=== PATIENT | female | born 1985 | race Caucasian/White ===

== ENCOUNTER 2016-10-07 18:19 | Emergency (ER) | payer OTHER ==
[~2016-10-07] VITALS: Ht 162.6 cm; Wt 71.5 kg
[~2016-10-07 18:19] MED LIST: CALC1TAB98 PO; FER325 PO; IBUP-1542 PO; PREN1TAB74 PO
[2016-10-07 18:28] VITALS: Ht 162.6 cm; Wt 71.5 kg
[2016-10-07] MEDS ORDERED: ACET500C5 PO (18:37)
[2016-10-07] MEDS ORDERED: CETI10CA PO (18:37)
[2016-10-07] MEDS ORDERED: ALBU8.5H3 INH (18:37)
--- NOTE | 2016-10-07 19:09 | ERD ---
ER Documentation Chief Complaint Date/Time DATE: 10/07/16 TIME: 19:07 Chief Complaint cough x 3 days HPI 31-year-old female presents to emergency department for complaints of cough, on and off wheezing for the last 3 days. Patient denies any fever or chills. Patient has been having dry cough, does not cough up any phlegm or blood. Patient's brother is sick with the same symptoms. Patient is approximately 20 weeks , denies any abdominal pain, flank pain, vaginal bleeding or any related symptoms. ROS All systems reviewed and are negative except as per history of present illness. Medications Home Meds Active Scripts Acetaminophen* (Tylophen*) 500 Mg Capsule, 1 CAP PO Q6H Y for PAIN AND OR ELEVATED TEMP, #20 CAP Prov:MYA SOARES NP 10/07/16 Cetirizine Hcl* (Zyrtec*) 10 Mg Capsule, 10 MG PO DAILY, #30 TAB.CHEW Prov:MYA SOARES NP 10/07/16 Albuterol Sulfate* (Proair HFA*) 8.5 Gm Hfa.aer.ad, 2 PUFF INH Q4H Y for WHEEZING AND SOB, #1 INHALER Prov:MYA SOARES NP 10/07/16 Ibuprofen* (Ibuprofen*) 600 Mg Tablet, 600 MG PO Q6, #20 TAB 0 Refills Prov:YADIEL BAUTISTA MD 11/06/15 Reported Medications Ferrous Sulfate* (Ferrous Sulfate*) 325 Mg Tabec, 325 MG PO DAILY, TAB 09/19/15 Vit-Iron Fumarate-FA ( Vitamin Formula) 1 Tab Tablet, 1 TAB PO DAILY, TAB 09/19/15 Calcium Carbonate-Vitamin D3 (Calcium + D 600 Tablet) 1 Tab Tablet, 1 TAB PO DAILY, TAB 09/19/15 Allergies Allergies: Coded Allergies: No Known Allergy (Verified , 11/05/15) PMhx/Soc History of Surgery: Yes (cholecystectomy) Anesthesia Reaction: No Hx Neurological Disorder: No Hx Respiratory Disorders: No Hx Cardiac Disorders: No Hx Psychiatric Problems: No Hx Miscellaneous Medical Probl: No Hx Alcohol Use: No Hx Substance Use: No Hx Tobacco Use: No FmHx Family History: No coronary disease, No diabetes, No other Physical Exam Vitals Vital Signs Date Time Temp Pulse Resp B/P Pulse Ox O2 Delivery O2 Flow Rate FiO2 10/07/16 18:28 99.2 97 20 120/61 98 Physical Exam GENERAL: The patient is well developed and appropriate for usual state of health, in no apparent distress. HEENT: Atraumatic. Ears: Normal tympanic membrane, no erythema or bulging. No ear canal swelling. No ear discharge. Nose: Erythematous nasal turbinates with clear nasal discharge. Throat: oropharynx erythematous with postnasal drip. No tonsillar swelling or tonsillar exudates. No lymphadenopathy. CHEST: Clear to auscultation bilaterally. There are no rales, wheezes or rhonchi. HEART: Regular rate and rhythm. No murmurs, clicks, rubs or gallops. No S3 or S4. ABDOMEN: Soft, gravid abdomen. Good bowel sounds. No rebound or guarding. No gross peritonitis. No gross organomegaly or masses. No Godoy sign or McBurney point tenderness. BACK: No midline or flank tenderness. EXTREMITIES: Equal pulses bilaterally. There is no peripheral clubbing, cyanosis or edema. No focal swelling or erythema. Full range of motion. Grossly neurovascularly intact. NEURO: Alert and oriented. Cranial nerves 2-12 intact. Motor strength in all 4 extremities with 5/5 strength. Sensation grossly intact. Normal speech and gait. SKIN: There is no apparent rash or petechia. The skin is warm and dry. HEMATOLOGIC AND LYMPHATIC: There is no evidence of excessive bruising or lymphedema. No gross cervical, axillary, or inguinal lymphadenopathy. Procedures/MDM Medical Decision Making: Patient symptoms are most likely consistent with acute bronchitis, which viral in origin. There is low suspicion for Pneumonia at this time since patients lungs sounds are clear, patient O2 saturation is normal and patient doesnt show any respiratory distress. Radiology exam not indicated at this time. There is low suspicion for other cardiopulmonary emergencies at this time such as CHF, Pulmonary Embolism, Pneumothorax, or any other cardiopulmonary emergencies at this time. There is low suspicion for sepsis. Patient appears well and is hemodynamically stable. Fever is controlled with medicines. Disposition: Home. Condition: Stable Prescriptions: Tylenol, albuterol, Zyrtec Instructions: Patient is advised to take medications as prescribed. Patient is advised to rest. Patient advised to increase fluid intake, do humidifier at home and if possible, do salt water gargles. Patient is advised that if symptoms are worse, shortness of breath, uncontrolled fever, stridor, vomiting, worst signs and symptoms to return to emergency department immediately. Otherwise, patient is advised to follow up with primary doctor in 5-7 days. Departure Diagnosis: Primary Impression: Acute bronchitis Bronchitis organism: unspecified organism Qualified Code: J20.9 - Acute bronchitis, unspecified organism Condition: Stable Patient Instructions: Bronchitis With Wheezing (Adult) MYA SOARES NP Oct 07, 2016 19:09
== END 2016-10-07 18:37 | disposition home or self-care (01) ==
LOC: E/R 18:19
DX: J20.9 Acute bronchitis, unspecified (principal)
CPT/HCPCS: 99283

== ENCOUNTER 2017-03-05 17:57 | Inpatient (IN) | payer OTHER ==
[~2017-03-05] VITALS: Ht 152.4 cm; Wt 70.9 kg
[~2017-03-05 17:57] MED LIST changes: +ACET500C5 PO; +ALBU8.5H3 INH; +CETI10CA PO
[2017-03-05] MEDS ORDERED: LACTATED RINGER'S 1,000 ML IV PRN (18:00)
[2017-03-05] MEDS ORDERED: BUTORPHANOL 2 MG INJ IV PRN (18:00)
[2017-03-05] MEDS ORDERED: OXYTOCIN 30 UNITS/LR 500 ML IV PRN ×2 (18:00→22:30)
[2017-03-05] MEDS ORDERED: LACTATED RINGER'S 1,000 ML IV SCH (18:00)
[2017-03-05] MEDS ORDERED: IBUPROFEN 600 MG TAB PO PRN (18:00)
[2017-03-05] MEDS ORDERED: METHYLERGONOVINE 0.2 MG INJ IM PRN ×2 (18:00→22:30)
[2017-03-05] MEDS ORDERED: OXYTOCIN 30 UNITS/LR 500 ML IV SCH ×2 (18:00)
[2017-03-05] MEDS ORDERED: CARBOPROST 250 MCG INJ IM PRN ×2 (18:00→22:30)
[2017-03-05] MEDS ORDERED: MISOPROSTOL 200 MCG TAB PR PRN ×2 (18:00→22:30)
[2017-03-05] MEDS ORDERED: LIDOCAINE 1% (MPF) 30 ML INJ INJ PRN (18:00)
[2017-03-05 18:06] VITALS: Ht 152.4 cm; Wt 70.9 kg
[2017-03-05 18:26] VITALS: BP 131/66; PULSE 93; RESP 18
[2017-03-05] MEDS ORDERED: AMPICILLIN 2 GM/NS (PMX) 100 ML IV ONE (18:30)
[2017-03-05 18:43] LABS: ABNORMAL IP MESSAGE 1; BASOPHILS % 0.3 % (0.0-2.0); EOSINOPHILS # 0.1 10^3/ul (0.0-0.5); EOSINOPHILS % 0.5 % (0.0-7.0); HEMATOCRIT 36.2 % (37.0-47.0); HEMOGLOBIN 12.5 g/dl (12.0-16.0); LYMPHOCYTES # 2.7 10^3/ul (0.8-2.9); LYMPHOCYTES % 23.3 % (15.0-51.0); MEAN CORPUSCULAR HEMOGLOBIN 30.9 pg (29.0-33.0); MEAN CORPUSCULAR HGB CONC 34.5 g/dl (32.0-37.0); MEAN CORPUSCULAR VOLUME 89.4 fl (82.0-101.0); MONOCYTE # 0.7 10^3/ul (0.3-0.9); MONOCYTES % 6.5 % (0.0-11.0); NEUTROPHIL # 7.9 10^3/ul (1.6-7.5); NEUTROPHILS % 68.7 % (39.0-77.0); PLATELET COUNT 124 10^3/UL (140-415); RED BLOOD COUNT 4.05 10^6/ul (4.20-5.40); RED CELL DISTRIBUTION WIDTH 14.6 % (11.5-14.5); WHITE BLOOD COUNT 11.4 10^3/ul (4.8-10.8)
[2017-03-05 18:52] LABS: POSITIVE DIFF @See below
--- NOTE | 2017-03-05 19:03 | TRIAGE ---
OB Triage Datetime Report Generated by CPN: 03/05/2017 19:02 Datetime: 03/05/2017 18:54 Maternal Assessment Level of Consciousness: Fully Conscious DTR's/Clonus: DTRs 2+ Headache: Denies Blurred Vision: No Respiratory Effort: Unlabored Nausea/Vomiting: Denies RUQ Epigastric Pain: Denies Facial Edema: None Labor Evaluation Frequency: 4-6 Monitor Mode: External Duration (sec)2399: 20-30 Quality: Moderate Pattern: Normal: <= 5 Contractions in 10 Minutes Resting Tone [place]: Relaxed Heart Rate FHR Baseline Rate: 155 Monitor Mode: External US Variability: Moderate 6-25 bpm Accelerations: 15X15 Decelerations: Early Category: Category I Pain Assessment Pain Scale: 5 Pain Presence: Intermittent Pain Type: Contraction Pain Location: Abdomen; Back; Perineum Pain Goal: 5 Pain Relief Measures: Comfort Measures Datetime: 03/05/2017 18:29 Vaginal Exam Dilatation (cms): 7.5 Effacement (%): 90 Station: -1 Exam By: BJACOBO Membrane Status: Bulging Datetime: 03/05/2017 18:17 Monitor Mode: External US Datetime: 03/05/2017 18:15 Assessment Type: Admission Assessment Time of Arrival: 03/05/2017 17:55 EGA: 38.6 Arrived By: Ambulatory Arrived From: Home Chief Complaint: UC'S SINCE 1600 Movement: Present Contractions: Regular Time Contractions Began: 03/05/2017 16:00 Contractions: 5-10 Rupture of Membranes: Denies Vaginal Bleeding: None Vaginal Discharge: Denies Recent Sexual Intercouse: Denies Abdominal Trauma: Not Applicable Patient Complaints: Contractions; Back Pain Time Provider Notified: 03/05/2017 18:01 Provider Notified: DR. PEÑA Initial Plan: NST, SVE CALL MD Maternal Assessment Level of Consciousness: Fully Conscious DTR's/Clonus: DTRs 2+; No Clonus Headache: Denies Blurred Vision: No Respiratory Effort: Unlabored; Regular Rhythm; Equal Expansion Breath Sounds, Left: Clear and Equal Breath Sounds, Right: Clear and Equal Nausea/Vomiting: Denies RUQ Epigastric Pain: Denies Lower Extremities Edema: Bilateral Lower Extremities Lower Extremities Edema: None Degree: None Upper Extremities Edema: None Upper Extremities Edema: None Degree: None Facial Edema: None Fall Risk Assessment History of Falling: (0) No Secondary Diagnosis: (0) No Ambulatory Aid: (0) Bedrest/Nurse Assist IV Therapy: (20) Yes Gait: (0) Normal/Bedrest/Immobile Mental Status: (0) Oriented to Own Ability Fall Score: 20 Fall Risk Score Definition: No Risk: No action required Labor Evaluation Frequency: 2-3 Duration (sec)2399: 60-70 Quality: Strong Pattern: Normal: <= 5 Contractions in 10 Minutes Resting Tone [place]: Relaxed Heart Rate FHR Baseline Rate: indeterminable due to maternal position Pain Assessment Pain Scale: 8 Pain Presence: Intermittent Pain Type: Contraction Pain Location: Abdomen Pain Goal: 5 Vaginal Exam Dilatation (cms): 7.0 Effacement (%): 80 Station: -1 Membrane Status: Intact Datetime: 03/05/2017 18:14 Stage of : Labor Maternal Assessment Level of Consciousness: Fully Conscious DTR's/Clonus: DTRs 2+; No Clonus Headache: Denies Breath Sounds, Left: Clear and Equal Breath Sounds, Right: Clear and Equal Nausea/Vomiting: Denies RUQ Epigastric Pain: Denies Monitor Mode: External Datetime: 03/05/2017 18:09 Time of Arrival: 03/05/2017 18:09 EGA: 38.6 Arrived By: Ambulatory Arrived From: Home Datetime: 03/05/2017 18:07 Presentation 'A': Cephalic Datetime: 03/05/2017 18:00 Stage of : OB Triage Assessment Type: Admission Assessment Maternal Assessment Level of Consciousness: Fully Conscious DTR's/Clonus: DTRs 2+; No Clonus Headache: Denies Blurred Vision: No Respiratory Effort: Unlabored; Regular Rhythm; Equal Expansion Breath Sounds, Left: Clear and Equal Breath Sounds, Right: Clear and Equal Nausea/Vomiting: Denies RUQ Epigastric Pain: Denies Lower Extremities Edema: Bilateral Lower Extremities Degree: 2+ Upper Extremities Edema: None Degree: None Facial Edema: None Temperature Route: Axillary Fall Risk Assessment History of Falling: (0) No Secondary Diagnosis: (0) No Ambulatory Aid: (0) Bedrest/Nurse Assist IV Therapy: (0) No Gait: (0) Normal/Bedrest/Immobile Mental Status: (0) Oriented to Own Ability Fall Score: 0 Fall Risk Score Definition: No Risk: No action required Pain Assessment Pain Scale: 8 Pain Presence: Intermittent Pain Type: Contraction; Pressure Pain Location: Abdomen; Back; Perineum Pain Relief Measures: Comfort Measures Vaginal Exam Dilatation (cms): 6.5 Effacement (%): 90 Station: -1 Exam By: HIMANSHU ADKINS
[2017-03-05 19:10] VITALS: BP 122/70; PULSE 88; RESP 22
[2017-03-05 19:43] LABS: INR 0.91; PROTIME 12.2 Sec (12.2-14.2)
[2017-03-05 19:52] LABS: PARTIAL THROMBOPLASTIN TIME 26.7 Sec (25.0-35.0)
--- NOTE | 2017-03-05 20:26 | HP ---
Date/Time of Note Date/Time of Note DATE: 03/05/17 TIME: 20:18 OB - History Hx of Present Free Text/Dictation 31 y.o at 38w6d in active labor with intact membrane . VE 7/80%/-1 uc's q2-3min PNR not available GBS pending admitted for expectant management. Chief Complaint: UC's Estimated Due Date: Mar 13, 2017 : 3 Para: 2 Spontaneous : 0 Therapeutic : 0 Care: Other Obstetrical Complications: None Medical Complications: None Past Family/Social History * Past Medical, Surgical, Family and Obstetric Histories reviewed from chart. Blood Type: Unknown Rubella: unknown RPR/VDRL: Unknown GBS Status: Unknown OB Admission Exam Vital Signs Vital Signs Vital Signs Date Time Temp Pulse Resp B/P Pulse Ox O2 Delivery O2 Flow Rate FiO2 03/05/17 19:10 98.6 88 22 122/70 Room Air Physical Exam HEENT: WNL Heart: Rhythm Normal Lungs: Clear, Equal Abdomen: WNL Extremities: Normal Reflexes: Normal Cervical Dilatation: 7cm Effacement: 75% Station: -1 Membranes: Intact Amniotic Fluid: Unevaluable Heart Rate: 150's Accelerations: Accelerations Present Decelerations: No Decelerations Varibility: Moderate Contractions on Admission: < 5 Minutes Apart Intensity: Firm Last 72 hours Lab Results CBC & BMP 03/05/17 18:10 OB Assessment/Plan Reason for admission: active labor Other Assessment: IUP 38w6d Plan: Expectant Management IMELDA HERNANDEZ MD Mar 05, 2017 20:26
--- NOTE | 2017-03-05 20:31 | LDN ---
Date/Time of Note Date/Time of Note DATE: 03/05/17 TIME: 20:29 Delivery Summary Weeks of Gestation 38w6d Placenta Delivered: Spontaneously Meconium: none Episiotomy: No Perineal laceration: 0 Anesthesia type: None Estimated blood loss: 100 Sponge & Needle done & correct: Yes All needle counts correct: Yes Any foreign bodies felt in the: No Problems: Infant Delivery Information Sex Sex: male Apgars 1 Minute: 9 5 Minute: 9 Suctioning Nose & mouth suctioned at mandi: Yes Delee suction performed: No Umbilical Cord Umbilical cord with: 3 Vessels Cord presentations: no nuchal cord Cord Blood was obtained: Yes Mother & Baby Disposition Disposition Mom & Baby to Maternity; Good: Yes Mom transferred to: Other Baby to NICU: No () IMELDA HERNANDEZ MD Mar 05, 2017 20:31
[2017-03-05 22:10] VITALS: BP 133/63; PULSE 100; RESP 19
[2017-03-05] MEDS ORDERED: BENZOCAINE 20% 56 ML SPRAY TOP PRN (22:30)
[2017-03-05] MEDS ORDERED: AMPICILLIN 1 GM/NS (PMX) 50 ML IV SCH (22:30)
[2017-03-05] MEDS ORDERED: LANOLIN 7 GM TUBE TOP PRN (22:30)
[2017-03-05] MEDS ORDERED: OXYCODONE/ASPIRIN (4.88/325) TAB PO PRN ×2 (22:30)
[2017-03-05] MEDS ORDERED: ZOLPIDEM 5 MG TAB PO PRN (22:30)
[2017-03-06] MEDS: IBUPROFEN 600 MG TAB PO SCH ×4 (00:35→17:21)
[2017-03-06] MEDS: WITCH HAZEL/GLYCERIN PAD PR PRN (00:37)
[2017-03-06 01:00] VITALS: BP 126/72; PULSE 92; RESP 19
[2017-03-06] MEDS ORDERED: LACTATED RINGER'S 1,000 ML IV SCH (01:00)
[2017-03-06 06:37] LABS: ABNORMAL IP MESSAGE 1; BASOPHILS % 0.3 % (0.0-2.0); EOSINOPHILS % 0.3 % (0.0-7.0); HEMATOCRIT 30.9 % (37.0-47.0); HEMOGLOBIN 10.6 g/dl (12.0-16.0); LYMPHOCYTES # 2.9 10^3/ul (0.8-2.9); LYMPHOCYTES % 18.3 % (15.0-51.0); MEAN CORPUSCULAR HEMOGLOBIN 30.9 pg (29.0-33.0); MEAN CORPUSCULAR HGB CONC 34.3 g/dl (32.0-37.0); MEAN CORPUSCULAR VOLUME 90.1 fl (82.0-101.0); MEAN PLATELET VOLUME 14.1 fl (7.4-10.4); MONOCYTE # 0.9 10^3/ul (0.3-0.9); MONOCYTES % 5.8 % (0.0-11.0); NEUTROPHIL # 11.8 10^3/ul (1.6-7.5); NEUTROPHILS % 74.7 % (39.0-77.0); PLATELET COUNT 110 10^3/UL (140-415); RED BLOOD COUNT 3.43 10^6/ul (4.20-5.40); RED CELL DISTRIBUTION WIDTH 14.9 % (11.5-14.5); WHITE BLOOD COUNT 15.8 10^3/ul (4.8-10.8)
[2017-03-06 06:57] LABS: POSITIVE DIFF @See below
[2017-03-06 07:30] VITALS: BP 115/70; PULSE 97; RESP 18
[2017-03-06] MEDS: SENNA/DOCUSATE NA (8.6MG/50MG) TAB PO SCH ×2 (09:43→21:51)
[2017-03-06 16:01] VITALS: BP 122/65; PULSE 90; RESP 20
--- NOTE | 2017-03-06 16:55 | DS ---
Date/Time of Note Date/Time of Note Home today or next day DATE: 03/06/17 TIME: 16:54 Obstetrical Discharge Record Final Diagnosis Final Diagnosis: Term delivered Other Final Diagnosis Status post vaginal delivery Vaginal Delivery Obstetrical Delivery: Spontaneous Condition on Discharge Physical Assessment Last Vitals: See nurse's notes Voiding: Yes Bowel Movement: Yes Breast: Soft, non-tender, Filling Fundus: Firm Abdomen and Incision: Abdomen is soft bowel sounds present Fundus is firm and at the level of bellybutton Episiotomy: Not applicable Perineum is clean Calf Tenderness: No Patient Condition: Good YADIEL BAUTISTA MD Mar 06, 2017 16:55
--- NOTE | 2017-03-06 16:56 | PD.PPDC ---
VETERINARY BACTERIOLOGIST Discharge Instruction Provider Information Physician Information 31-year-old female had vaginal delivery Diagnosis Final Diagnosis: Status post vaginal delivery Condition Patient Condition: Good Diet Diet: Resume Regular Diet Activity/Restrictions Activity: Normal Activity May Shower Restrictions: Nothing in the Vagina Return to Work or School: Apr 20, 2017 Follow-up Follow-up with Physician: Week/Weeks (In clinic) Return to clinic for OB Instructions: Breast Tenderness Depression Comment: Pelvic rest 6 week YADIEL BAUTISTA MD Mar 06, 2017 16:56
[2017-03-06] MEDS ORDERED: IBUP-1542 PO (16:57)
[2017-03-06 19:50] VITALS: BP 119/64; PULSE 100; RESP 18
[2017-03-07] MEDS: IBUPROFEN 600 MG TAB PO SCH ×4 (00:32→17:27)
[2017-03-07 03:50] VITALS: BP 103/63; PULSE 90; RESP 18
[2017-03-07] MEDS ORDERED: DIPHTH/TET/ACEL PERTUSS (ADULT) 0.5 ML VIAL IM* ONE (09:00)
[2017-03-07] MEDS: SENNA/DOCUSATE NA (8.6MG/50MG) TAB PO SCH (09:14)
[2017-03-07 09:15] VITALS: BP 124/71; PULSE 94; RESP 18
[2017-03-07] MEDS: WITCH HAZEL/GLYCERIN PAD PR PRN (13:31)
[2017-03-07 16:05] VITALS: BP 123/66; PULSE 91; RESP 18
== END 2017-03-07 18:12 | disposition home or self-care (01) | DRG 775 ==
LOC: OBT 17:57 → L-D 17:58 → OBT 18:00 → L-D 18:00 → PP1 22:27
PROVIDERS: ADMIT Obstetrics & Gynecology; ATTEND Obstetrics & Gynecology
PROC: 10E0XZZ Delivery of Products of Conception, External Approach (ICD-10-PCS; principal; 2017-03-05)
DX: O80 Encounter for full-term uncomplicated delivery (principal); Z37.0 Single live birth; Z3A.38 38 weeks gestation of pregnancy
CPT/HCPCS: 85025; 85610; 85730; 86592; 86900; 86901; 87340; 90715; G0463; J0290; J2590; J7120